=== PATIENT | female | born 1995 | race African-American/Black ===

== ENCOUNTER 2020-08-29 10:55 | Observation (INO) | payer MEDICAID ==
[~2020-08-29] VITALS: Ht 157.5 cm; Wt 83.5 kg
== END 2020-08-29 12:08 | disposition home or self-care (01) ==
LOC: 8 EST LDRP 10:55
PROVIDERS: ADMIT Obstetrics & Gynecology; ATTEND Obstetrics & Gynecology
DX: O9A.212 Injury, poisoning and certain other consequences of external causes complicating pregnancy, second trimester (principal); S39.91XA Unspecified injury of abdomen, initial encounter; O36.8120 Decreased fetal movements, second trimester, not applicable or unspecified; Z3A.23 23 weeks gestation of pregnancy; W22.8XXA Striking against or struck by other objects, initial encounter; Y93.89 Activity, other specified; Y92.89 Other specified places as the place of occurrence of the external cause
CPT/HCPCS: 59025; G0378; 99281